=== PATIENT | female | born 2000 | race Caucasian/White ===

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

== ENCOUNTER → 2020-11-24 | Outpatient (CLI) | payer OTHER ==
[~2020-11-24] MED LIST: PROTONIX40 M1 PO
== END ==
LOC: ECHO 11:00
DX: R00.2 Palpitations (principal); I47.1 Supraventricular tachycardia; I07.1 Rheumatic tricuspid insufficiency
CPT/HCPCS: ECHO; 93306

== ENCOUNTER → 2020-11-28 | Outpatient (CLI) | payer OTHER ==
[2020-11-28 11:08] LABS: HEMOGLOBIN 12.3 gm/dl (12.3-15.3); RED BLOOD COUNT 4.78 M/UL (4.00-5.10); WHITE BLOOD COUNT 6.4 K/UL (4.5-11.0)
[2020-11-28 11:24] LABS: BUN/CREATININE RATIO 14 (0-10)
== END ==
LOC: LAB 10:27
PROVIDERS: Internal Medicine Cardiovascular Disease
DX: R00.2 Palpitations (principal); I47.1 Supraventricular tachycardia; R55 Syncope and collapse
CPT/HCPCS: 36415; 71046; 80048; 85025; 85610; 85730